=== PATIENT | female | born 1980 | race Caucasian/White ===

== ENCOUNTER → 2020-03-14 | Outpatient (CLI) | payer BC ==
[~2020-03-14] MED LIST: CYCL10 PO; HYDACE5 PO; IBUP800 PO; NAPR550 PO; Percocet 5-3251 EACH PO
== END | disposition home or self-care (01) ==
LOC: LAB EV 12:20 → LAB SHORT 12:20
DX: N39.0 Urinary tract infection, site not specified (principal)
CPT/HCPCS: 87077; 87086; 87186

== ENCOUNTER → 2021-08-22 | Outpatient (CLI) | payer BC ==
[2021-08-23 16:11] LABS: HPV 16 Negative (Negative); HPV 18 Negative (Negative); HPV OTHER HR TYPES Negative (Negative)
== END | disposition home or self-care (01) ==
LOC: LAB SHORT 11:09 → LAB 11:09
PROVIDERS: Obstetrics & Gynecology
DX: Z12.4 Encounter for screening for malignant neoplasm of cervix (principal)
CPT/HCPCS: 87624; G0123